=== PATIENT | male | born 1975 | race American Indian/Alaskan Native ===

== ENCOUNTER 2017-11-17 02:20 | Observation (INO) | payer SELFPAY ==
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
[2017-11-17 03:54] LABS: BASO # 0.06 K/mm3 (0.0-2.0); BASO % 0.6 % (0.0-3.0); EOS # 0.3 (0.0-0.7); EOS % 3.4 % (1.5-5.0); GRAN # 4.51 (1.4-6.5); HEMOGLOBIN 12.5 g/dL (14.0-18.0); LYMPH # 4.2 (1.2-3.4); LYMPH % 41.5 % (22.0-35.0); MEAN CELL VOLUME 94.9 fl (80.0-105.0); MEAN CORPUSCULAR HEMOGLOBIN 30.3 pg (25.0-35.0); MEAN PLATELET VOLUME 10.8 fl (7.0-11.0); MONO % 9.5 % (1.0-6.0); RBC 4.12 10^6/uL (3.5-6.1); RED CELL DISTRIBUTION WIDTH 14.9 % (11.5-14.5)
[2017-11-17 04:12] LABS: ALBUMIN 3.3 g/dL (3.0-4.8); CALCIUM 8.7 mg/dL (8.4-10.5); GFR AFRICAN-AMERICAN > 60; GFR NON-AFRICAN AMERICAN > 60
--- NOTE | 2017-11-17 04:28 | CT ---
EXAM: CT Head Without Intravenous Contrast EXAM DATE/TIME: 11/17/2017 3:00 AM CLINICAL HISTORY: 42 years old, male; Pain; Headache; Headache not specified; Additional info: Syncope TECHNIQUE: Axial computed tomography images of the head/brain without intravenous contrast. All CT scans at this facility use one or more dose reduction techniques, viz.: automated exposure control; ma/kV adjustment per patient size (including targeted exams where dose is matched to indication; i.e. head); or iterative reconstruction technique. COMPARISON: No relevant prior studies available. FINDINGS: BRAIN: No significant acute abnormality identified. No acute hemorrhage seen within the brain. No acute extra-axial fluid collections visualized. No evidence of significant mass effect within the brain. Normal callejas-white matter differentiation. VENTRICLES: No evidence of significant hydrocephalus. BONES/JOINTS: Findings compatible with an old fracture of the right medial orbital wall/lamina papyracea. SOFT TISSUES: No acute abnormality of the visualized soft tissues is seen. SINUSES: Visualized paranasal sinuses appear clear. MASTOID AIR CELLS: Mastoid air cells appear clear. IMPRESSION: - No acute findings seen within the brain. - See above for remaining findings.
[2017-11-17 04:29] LABS: TROPONIN I < 0.01 ng/mL
[2017-11-17 04:36] LABS: ALT/SGPT 31 U/L (7-56); AST/SGOT 21 U/L (17-59); BLOOD UREA NITROGEN 21 mg/dL (7-21)
[2017-11-17 04:50] LABS: ACETAMINOPHEN < 10.0 ug/ml (10.0-20.0); SALICYLATE < 1 mg/dL (2.0-20.0)
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
[2017-11-17] MEDS: Sodium Chloride 0.9% 1,000 ML IV SCH ×2 (06:32→22:21)
[2017-11-17 06:57] LABS: HDL CHOLESTEROL 34 mg/dL (29-60)
[2017-11-17 07:07] LABS: LDL CHOLESTEROL 68 mg/dL (0-129)
[2017-11-17 08:48] LABS: BARBITURATES, UR NEGATIVE (NEGATIVE); BENZODIAZEPINES, UR NEGATIVE (NEGATIVE); OPIATES, UR NEGATIVE (NEGATIVE); PHENCYCLIDINE, UR NEGATIVE (NEGATIVE)
[2017-11-17] MEDS ORDERED: Albuterol-Ipratrop 3 mg / 0.5 (3 ml) UD IH STA (09:33)
[2017-11-17] MEDS ORDERED: Albuterol-Ipratrop 3 mg / 0.5 (3 ml) UD IH PRN (09:50)
--- NOTE | 2017-11-17 11:26 | RAD ---
HISTORY: medical clearance COMPARISON: No prior. FINDINGS: LUNGS: No active pulmonary disease. PLEURA: No significant pleural effusion identified, no pneumothorax apparent. CARDIOVASCULAR: Normal. OSSEOUS STRUCTURES: No significant abnormalities. VISUALIZED UPPER ABDOMEN: Normal. OTHER FINDINGS: None. IMPRESSION: No active disease.
--- NOTE | 2017-11-17 17:07 | CARD ---
APPROVED REPORT EKG Measurement Heart [id number] <Conclusion> Normal sinus rhythm Normal ECG
[2017-11-17 19:39] VITALS: BMI 33.4
[2017-11-17] MEDS ORDERED: Influenza Vaccine 60 mcg/0.5 mL SYR (4YR UP) IM ONE (19:39)
[2017-11-17] MEDS ORDERED: Pneumococcal 23-Valent Vaccine IM ONE (19:39)
[2017-11-18] MEDS: Sodium Chloride 0.9% 1,000 ML IV SCH ×2 (05:29→11:39)
[2017-11-18 07:53] VITALS: BP 139/89; RESP 20; TEMP 99.4; O2SAT 98
[2017-11-18 08:25] LABS: BASO # 0.04 K/mm3 (0.0-2.0); BASO % 0.4 % (0.0-3.0); EOS % 0.3 % (1.5-5.0); GRAN # 8.83 (1.4-6.5); GRAN % 77.6 % (50.0-68.0); HEMOGLOBIN 13.1 g/dL (14.0-18.0); LYMPH # 1.4 (1.2-3.4); LYMPH % 12.5 % (22.0-35.0); MEAN CORPUSCULAR HEMOGLOBIN 30.5 pg (25.0-35.0); MEAN CORPUSCULAR HGB CONC 32.8 g/dl (31.0-37.0); MEAN PLATELET VOLUME 10.4 fl (7.0-11.0); MONO % 9.2 % (1.0-6.0); RBC 4.29 10^6/uL (3.5-6.1); RED CELL DISTRIBUTION WIDTH 14.4 % (11.5-14.5); WHITE BLOOD COUNT 11.4 10^3/ul (4.5-11.0)
[2017-11-18 08:54] LABS: ALB/GLOB RATIO 1.1 (1.1-1.8); ALBUMIN 3.3 g/dL (3.0-4.8); ALT/SGPT 38 U/L (7-56); AST/SGOT 19 U/L (17-59); BLOOD UREA NITROGEN 8 mg/dL (7-21); CALCIUM 8.9 mg/dL (8.4-10.5); GFR AFRICAN-AMERICAN > 60; GFR NON-AFRICAN AMERICAN > 60; MAGNESIUM 1.8 mg/dL (1.7-2.2)
[2017-11-18] MEDS: Albuterol-Ipratrop 3 mg / 0.5 (3 ml) UD IH SCH ×2 (11:21→15:36)
[2017-11-18 11:27] VITALS: PULSE 73
[2017-11-18] MEDS ORDERED: Albuterol-Ipratrop 3 mg / 0.5 (3 ml) UD IH PRN (13:17)
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
--- NOTE | 2017-11-18 17:36 | CARD ---
APPROVED REPORT EXAM: Two-dimensional and M-mode echocardiogram with Doppler and color Doppler. INDICATION Syncope 2D DIMENSIONS Left Atrium (2D)4.6 (1.6-4.0cm)IVSd1.2 (0.7-1.1cm) LVDd5.4 (3.9-5.9cm)PWd1.3 (0.7-1.1cm) LVDs4.0 (2.5-4.0cm)FS (%) 24.9 % LVEF (%)48.8 (>50%) M-Mode DIMENSIONS Aortic Root3.10 (2.2-3.7cm)Aortic Cusp Exc.2.10 (1.5-2.0cm) Aortic Valve AoV Peak Paovonel448.0cm/Kadeem Peak GR.14mmHg Mitral Valve E/A ratio0.0 TDI E/Lateral E'0.0E/Medial E'0.0 Tricuspid Valve TR Peak [id number] [id number] Peak Gr.16mmHg [id number] LEFT VENTRICLE The left ventricle is normal size. There is normal left ventricular wall thickness. Left ventricle is mildly impaired. Lateral wall hypokinesis Transmitral Doppler flow pattern is Grade I-abnormal relaxation pattern. RIGHT VENTRICLE The right ventricle is normal size. There is normal right ventricular wall thickness. The right ventricular systolic function is normal. ATRIA The left atrium is borderline dilated. The right atrium size is normal. AORTIC VALVE The aortic valve is normal in structure. No aortic regurgitation is present. There is no aortic valvular stenosis. MITRAL VALVE The mitral valve is normal in structure. Mitral regurgitation is trace. TRICUSPID VALVE The tricuspid valve is normal in structure. There is trace tricuspid regurgitation. GREAT VESSELS The aortic root is normal in size. The IVC is normal in size and collapses >50% with inspiration. PERICARDIAL EFFUSION There is no pericardial effusion. <Conclusion> The left ventricle is normal size. There is normal left ventricular wall thickness. Left ventricle is mildly impaired. Lateral wall hypokinesis Transmitral Doppler flow pattern is Grade I-abnormal relaxation pattern.
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
== END 2017-11-18 16:38 | disposition home or self-care (01) ==
LOC: ED 02:20 → ERH 05:37 → 3RNO 15:58
PROVIDERS: ADMIT Internal Medicine; ATTEND Internal Medicine
DX: F32.9 Major depressive disorder, single episode, unspecified (principal); R45.851 Suicidal ideations; Z59.0 Homelessness; Z87.891 Personal history of nicotine dependence; R40.2412 Glasgow coma scale score 13-15, at arrival to emergency department
CPT/HCPCS: 36415; 70450; 71010; 80053; 80061; 82550; 83036; 83615; 83735; 84100; 84443; 84484; 85025; 86710; 87070; 87430; 87804; 93005; 93306; 94640; 94760; 99285; G0378; G0480; J7040